=== PATIENT | female | born 2000 | race Two or more races ===

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

== ENCOUNTER 2019-04-04 14:47 | Emergency (ER) | payer MEDICAID ==
[~2019-04-04] VITALS: Ht 167.6 cm; Wt 54.4 kg
[2019-04-04 15:13] VITALS: BP 99/63
[2019-04-04 15:55] LABS: Urine Bacteria NONE SEEN /hpf (None Seen); Urine Blood Negative /uL (Negative); Urine Specific Gravity 1.006 (1.001-1.035); Urine WBC 1 /hpf (0 - 5)
== END 2019-04-04 17:27 | disposition home or self-care (01) ==
LOC: ER 14:47
DX: N76.0 Acute vaginitis (principal); N39.0 Urinary tract infection, site not specified; K59.00 Constipation, unspecified; Z32.02 Encounter for pregnancy test, result negative
CPT/HCPCS: 81001; 81025

== ENCOUNTER 2019-09-02 14:53 | Emergency (ER) | payer MEDICAID ==
[~2019-09-02] VITALS: Ht 167.6 cm; Wt 54.4 kg
[2019-09-02 16:13] LABS: Urine WBC None Seen /hpf (0 - 5)
[2019-09-02 16:44] LABS: Urine Bacteria NONE SEEN /hpf (None Seen); Urine Blood Negative /uL (Negative); Urine Mucus FEW (None Seen); Urine Specific Gravity 1.003 (1.001-1.035)
[2019-09-02 18:10] VITALS: BP 110/67
== END 2019-09-02 18:26 | disposition home or self-care (01) ==
LOC: ER 14:53
DX: N83.201 Unspecified ovarian cyst, right side (principal); Z32.02 Encounter for pregnancy test, result negative; Z88.0 Allergy status to penicillin
CPT/HCPCS: 76856; 81001; 81025

== ENCOUNTER 2022-05-07 19:56 | Emergency (ER) | payer MEDICAID ==
[~2022-05-07] VITALS: Ht 167.6 cm; Wt 59.0 kg
[2022-05-07 20:07] VITALS: BP 125/79
[2022-05-07] MEDS ORDERED: ONDANSETRON ODT 4 MG TAB PO ONE (20:15)
[2022-05-07] MEDS ORDERED: ACETAMINOPHEN 500 MG TAB PO ONE (20:15)
[2022-05-07 21:42] LABS: Basophils # (auto) 0 10 ^3/uL (0-0.2); Basophils % (auto) 0.7 % (0.0-2.0); Eosinophils # (auto) 0.1 10 ^3/uL (0-0.8); Eosinophils % (auto) 1.2 % (0.0-7.0); Hematocrit 33.8 % (36.0-46.0); Hemoglobin 11.7 g/dL (12.2-16.2); Lymphocytes # (auto) 2.4 10 ^3/uL (0.4-5.4); Lymphocytes % (auto) 35.7 % (10.0-50.0); Mean Corpuscular Hemoglobin 28.7 pg (28.0-32.0); Mean Corpuscular Hgb Conc. 34.5 g/dL (32.0-36.0); Mean Corpuscular Volume 83.1 fL (80.0-100.0); Monocytes # (auto) 0.5 10 ^3/uL (0-1.3); Monocytes % (auto) 7.5 % (0.0-12.0); Neutrophils # (auto) 3.7 10 ^3/uL (1.6-8.6); Neutrophils % (auto) 54.9 % (37.0-80.0); Red Blood Cells 4.07 10^6/uL (4.0-5.20); Red Cell Distribution Width 13.3 % (11.8-14.3); White Blood Cell 6.7 10^3/uL (4.4-10.8)
[2022-05-07 21:59] LABS: Albumin 3.9 g/dL (3.4-5.0); BUN/Creatinine Ratio 21.9; Calcium 8.9 mg/dL (8.5-10.1); Potassium 3.6 mmol/L (3.5-5.1)
[2022-05-07 22:02] LABS: Bilirubin, Total 0.2 mg/dL (0.2-1.0); Total Protein 7.5 g/dL (6.4-8.2)
== END 2022-05-08 01:46 | disposition home or self-care (01) ==
LOC: ER 19:58
DX: N93.9 Abnormal uterine and vaginal bleeding, unspecified (principal); Z88.0 Allergy status to penicillin; Z91.040 Latex allergy status
CPT/HCPCS: 36415; 76830; 76856; 80053; 85025